=== PATIENT | female | born 1980 | race African-American/Black ===

== ENCOUNTER 2017-05-27 17:25 | Inpatient (IN) | payer MEDICAID, OTHER ==
[~2017-05-27] VITALS: Ht 160 cm; Wt 107.0 kg
[2017-05-27 17:43] VITALS: BP 135/80; PULSE 76; RESP 20; TEMP 98.1; O2SAT 99
[2017-05-27] MEDS ORDERED: LOSA50TA2 PO (18:28)
--- NOTE | 2017-05-27 18:28 | PD ---
HPI . Suicidal ideation Chief Complaint: Psychiatric Symptoms Time Seen by Provider: 18:23 Travel History International Travel<30 days: No Contact w/Intl Traveler<30days: No Traveled to known affect area: No History of Present Illness HPI This patient presents voluntarily with chief complaint of suicidal ideation. The patient tells me that she does not want to repeat her story to me at this time. PFSH Past Medical History ?: Not LMP: 05/18/17 Social History Tobacco Use: No Allergies-Medications (Allergen,Severity, Reaction): Coded Allergies: No Known Allergies (Unverified , 05/27/17) Reported Meds & Prescriptions Reported Meds & Active Scripts Active Reported Losartan-Hydrochlorothiazide 50-12.5 Mg Tab 1 Tab PO BID Review of Systems ROS Limitations: Refused Physical Exam Narrative GENERAL: Awake and alert and in no acute distress. The patient appears angry. SKIN: Warm and dry. HEAD: Atraumatic. Normocephalic. EYES: Pupils equal and round. NECK: Trachea midline. CARDIOVASCULAR: Regular rate and rhythm. RESPIRATORY: No accessory muscle use. MUSCULOSKELETAL: No obvious deformities. No edema. NEUROLOGICAL: Awake and alert. No obvious cranial nerve deficits. Motor grossly within normal limits. Normal speech. PSYCHIATRIC: Angry. Poor eye contact. Does not want to talk. Data Data Last Documented VS Vital Signs Date Time Temp Pulse Resp B/P Pulse Ox O2 Delivery O2 Flow Rate FiO2 05/27/17 18:39 72 18 131/71 100 Room Air 05/27/17 17:43 98.1 Orders Complete Blood Count With Diff (05/27/17 17:50) Comprehensive Metabolic Panel (05/27/17 17:50) Urinalysis - C+S If Indicated (05/27/17 17:50) Psych Screen (05/27/17 17:50) Drug Screen, Random Urine (05/27/17 18:24) Alcohol (Ethanol) (05/27/17 17:50) Labs Laboratory Tests Test 05/27/17 05/27/17 05/27/17 17:35 18:10 18:35 Sodium Level 138 MEQ/L Potassium Level 3.6 MEQ/L Chloride Level 105 MEQ/L Carbon Dioxide Level 27.5 MEQ/L Anion Gap 6 MEQ/L Blood Urea Nitrogen 10 MG/DL Creatinine 0.98 MG/DL Estimat Glomerular Filtration 77 ML/MIN Rate Random Glucose 90 MG/DL Calcium Level 9.1 MG/DL Total Bilirubin 0.4 MG/DL Aspartate Amino Transf 23 U/L (AST/SGOT) Alanine Aminotransferase 23 U/L (ALT/SGPT) Alkaline Phosphatase 45 U/L Total Protein 7.5 GM/DL Albumin 3.6 GM/DL Ethyl Alcohol Level LESS THAN 3 MG/DL Urine Color YELLOW Urine Turbidity HAZY Urine pH 6.0 Urine Specific [place] 1.014 Urine Protein TRACE mg/dL Urine Glucose (UA) NEG mg/dL Urine Ketones NEG mg/dL Urine Occult Blood TRACE Urine Nitrite NEG Urine Bilirubin NEG Urine Urobilinogen LESS THAN 2.0 MG/DL Urine Leukocyte Esterase TRACE Urine RBC 3 /hpf Urine WBC 2 /hpf Urine Squamous Epithelial 1 /hpf Cells Urine Bacteria RARE /hpf Microscopic Urinalysis Comment CULT NOT INDICATED White Blood Count 4.9 TH/MM3 Red Blood Count 4.23 MIL/MM3 Hemoglobin 10.4 GM/DL Hematocrit 32.5 % Mean Corpuscular Volume 76.7 FL Mean Corpuscular Hemoglobin 24.6 PG Mean Corpuscular Hemoglobin 32.0 % Concent Red Cell Distribution Width 13.2 % Platelet Count 277 TH/MM3 Mean Platelet Volume 7.5 FL Neutrophils (%) (Auto) 64.7 % Lymphocytes (%) (Auto) 28.2 % Monocytes (%) (Auto) 5.3 % Eosinophils (%) (Auto) 1.2 % Basophils (%) (Auto) 0.6 % Neutrophils # (Auto) 3.2 TH/MM3 Lymphocytes # (Auto) 1.4 TH/MM3 Monocytes # (Auto) 0.3 TH/MM3 Eosinophils # (Auto) 0.1 TH/MM3 Basophils # (Auto) 0.0 TH/MM3 CBC Comment DIFF FINAL Differential Comment MDM Medical Decision Making Medical Screen Exam Complete: Yes Emergency Medical Condition: Yes Differential Diagnosis Differential diagnosis includes but is not limited to depression with suicidal gesture, suicide attempt, suicidal ideation, attention seeking behavior. Narrative Course This patient presents voluntarily for suicidal ideation. She reportedly has no plan. She does not want to tell me more about it. The patient will be medically cleared and then referred for psych triage. CBC Diagram 05/27/17 18:35 BMP Diagram 05/27/17 17:35 Alcohol level is negative. This patient is medically clear for psychiatric evaluation. Diagnosis Primary Impression: Suicidal ideation Condition: Sandy Baker MD May 27, 2017 18:28
[2017-05-27 18:30] LABS: BACTERIA, URINE RARE /hpf; BLOOD, URINE TRACE (NEG); COMMENT (UR) CULT NOT INDICATED; CULTURE IF INDICATED CULT NOT INDICATED; GLUCOSE,URINE NEG (NEG); KETONE, URINE NEG (NEG); NITRITE,URINE NEG (NEG); SQUAMOUS EPITHELIAL CELL URINE 1 /hpf (0-5); URINE COLOR YELLOW (YELLW/STRAW)
[2017-05-27 18:39] VITALS: BP 131/71; PULSE 72; RESP 18; O2SAT 100
[2017-05-27 19:01] LABS: AUTOMATED NEUTROPHIL # 3.2 TH/MM3 (1.8-7.7); BASOPHIL % 0.6 % (0.0-2.0); EOSINOPHIL # 0.1 TH/MM3 (0-0.4); EOSINOPHIL % 1.2 % (0.0-4.0); HEMATOCRIT 32.5 % (35.0-46.0); HEMO FLAGS DIFF FINAL; LYMPH % 28.2 % (9.0-44.0); LYMPHOCYTE # 1.4 TH/MM3 (1.0-4.8); MEAN CELL VOLUME 76.7 FL (80.0-100.0); MEAN CORPUSCULAR HEMOGLOBIN 24.6 PG (27.0-34.0); MONO % 5.3 % (0.0-8.0); NEUT % 64.7 % (16.0-70.0); PLATELET COUNT 277 TH/MM3 (150-450); RED BLOOD COUNT 4.23 MIL/MM3 (4.00-5.30); RED CELL DISTRIBUTION WIDTH 13.2 % (11.6-17.2); WHITE BLOOD COUNT 4.9 TH/MM3 (4.0-11.0)
[2017-05-27 19:38] LABS: ANION GAP 6 MEQ/L (5-15); AST (GOT) 23 U/L (15-37); BICARBONATE 27.5 MEQ/L (21.0-32.0); BLOOD UREA NITROGEN 10 MG/DL (7-18); CHLORIDE 105 MEQ/L (98-107); GLOMERULAR FILTRATION RATE 77 ML/MIN (>89); POTASSIUM 3.6 MEQ/L (3.5-5.1); SODIUM (NA) 138 MEQ/L (136-145)
[2017-05-27 19:39] LABS: ALT (GPT) 23 U/L (10-53)
[2017-05-27 19:42] LABS: ALKALINE PHOSPHATASE 45 U/L (45-117); TOTAL BILIRUBIN ADULT 0.4 MG/DL (0.2-1.0)
[2017-05-27 22:06] LABS: AMPHETAMINE, URINE NEG (NEG); BARBITURATES, URINE NEG (NEG); COCAINE, URINE NEG (NEG)
[2017-05-27 22:14] VITALS: BP 142/78; PULSE 78; RESP 18; TEMP 98.5; O2SAT 100
[2017-05-27] MEDS ORDERED: BENZTROPINE MESYLATE 1 MG TAB PO PRN (23:00)
[2017-05-27] MEDS ORDERED: ACETAMINOPHEN 325 MG TAB PO PRN (23:00)
[2017-05-27] MEDS ORDERED: BENZTROPINE MESYLATE 2 MG/2 ML VIAL IM PRN (23:00)
[2017-05-27] MEDS ORDERED: hydrOXYzine HCL 50 MG TAB PO PRN (23:00)
[2017-05-27] MEDS ORDERED: diphenhydrAMINE HCL 50 MG CAP PO PRN (23:00)
[2017-05-27] MEDS ORDERED: ALUMINUM/MAGNESIUM/SIMETH 30 ML CUP PO PRN (23:00)
[2017-05-27] MEDS ORDERED: MAGNESIUM HYDROXIDE SUSP 30 ML CUP PO PRN (23:00)
[2017-05-28 01:40] VITALS: BP 125/82; PULSE 70; RESP 18; TEMP 98.1; O2SAT 100
[2017-05-28 06:10] VITALS: BP 110/56; PULSE 63; RESP 17; TEMP 97.9; O2SAT 97
[2017-05-28] MEDS ORDERED: LOSARTAN 50 MG TAB PO SCH (09:00)
[2017-05-28] MEDS ORDERED: REMOVE OLD PATCH T-DERMAL SCH (09:00)
[2017-05-28] MEDS ORDERED: NICOTINE 21 MG/24 HR PATCH T-DERMAL SCH (09:00)
[2017-05-28] MEDS ORDERED: HYDROCHLOROTHIAZIDE 12.5 MG CAP PO SCH (09:00)
[2017-05-28] MEDS ORDERED: ALUMINUM/MAGNESIUM/SIMETH 30 ML CUP PO PRN (12:00)
[2017-05-28] MEDS ORDERED: MAGNESIUM HYDROXIDE SUSP 30 ML CUP PO PRN (12:00)
[2017-05-28] MEDS ORDERED: ACETAMINOPHEN 325 MG TAB PO PRN (12:00)
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
== END 2017-05-28 14:55 | disposition home or self-care (01) | DRG 881 ==
LOC: NEPD 17:25 → NEDA 22:58 → H260 05-28 01:42
PROVIDERS: ADMIT Psychiatry & Neurology Psychiatry; ATTEND Psychiatry & Neurology Psychiatry
DX: F43.21 Adjustment disorder with depressed mood (principal); R45.851 Suicidal ideations; I10 Essential (primary) hypertension; G47.00 Insomnia, unspecified; Z59.0 Homelessness; Z63.8 Other specified problems related to primary support group
CPT/HCPCS: 80053; 80307; 81001; 84703; 85025